=== PATIENT | female | born 1995 | race Caucasian/White ===

== ENCOUNTER 2024-07-02 22:55 | Inpatient (IN) | payer BC, SELFPAY ==
[2024-07-02] VITALS (8 sets, daily range): BP systolic 124–172; BP diastolic 85–104; BMI 37.5
[2024-07-02 18:09] LABS: Blood Urea Nitrogen 9 mg/dl (7-17); Carbon Dioxide 18 mmol/L (22-30); Chloride 108 mmol/L (98-107); Glucose 106 mg/dl (70-99); Lipase 222 U/L (23-300); Sodium 139 mmol/L (135-145); eGFR > 60.00
[2024-07-02 18:28] LABS: Calcium 15.3 mg/dl (8.4-10.2)
[2024-07-02 20:57] LABS: % Basophils 0.6 % (0-2); % Eosinophils 1.2 % (0-6); % Immature Granulocytes 0.4 % (0-0.5); % Lymphocytes 20.8 % (20.5-51.1); % Monocytes 3.7 % (1.7-9.3); % Neutrophils 73.3 % (42.2-75.2); Absolute Basophils 0.1 10^3/uL (0-0.2); Absolute Eosinophils 0.2 10^3/uL (0-0.7); Absolute Immature Granulocytes 0.1 10^3/uL (0-0.05); Absolute Lymphocytes 3.6 10^3/uL (1.2-3.4); Absolute Monocytes 0.6 10^3/uL (0.1-0.6); Absolute Neutrophils 12.6 10^3/uL (1.4-6.5); Hematocrit 43.5 % (37.0-47.0); Hemoglobin 14.5 g/dL (12.0-16.0); Mean Corp Hgb Conc. 33.3 g/dL (33.0-37.0); Mean Corpuscular Hgb 28.5 pg (27.0-31.0); Mean Corpuscular Volume 85.5 fL (81.0-99.0); Mean Platelet Volume 10.3 fL (7.4-10.4); Nucleated Red Blood Cells % 0 %; Platelet Count 387 10^3/uL (130-400); Red Blood Cell Count 5.09 10^6/uL (4.20-5.40); White Blood Cell Count 17.2 10^3/uL (4.8-10.8)
[2024-07-02] MEDS: NSS 1000 IV (21:00)
[2024-07-02 21:09] LABS: HCG, Serum Qualitative Screen Negative
[2024-07-02 21:11] LABS: Magnesium 2.1 mg/dl (1.6-2.3); Phosphorus 2.3 mg/dl (2.5-4.5)
[2024-07-02 21:12] LABS: Ionized Calcium 1.98 mMOL/L (1.15-1.33)
[2024-07-02 21:25] LABS: Calcium 14.8 mg/dl (8.4-10.2)
[2024-07-02] MEDS: AREDIA 270 MG IV (21:35)
[2024-07-02 21:43] LABS: TSH Reflex To Free T4 3.44 uIU/ml (0.47-4.68)
--- NOTE | 2024-07-02 21:58 | ED.GENMED ---
History of Present Illness
General
Chief Complaint: Abdominal Symptoms
Source: patient
Exam Limitations: none
Time Seen by Provider: 07/02/24 20:00
History of Present Illness
History of Present Illness:
Patient with postprandial right upper quadrant abdominal pain intermittently for over a year.
Past History
Past History
ED Past Medical History: Asthma
ED Past Surgical History: Other ([place] teeth)
Social History
Tobacco: Smoker
Alcohol: Occasional
Drug: None
Personal:
Living: with family
Review of Systems
Review of Systems
All Other Systems: Not applicable
Constitutional: Denies fever
Respiratory: Reports no symptoms
Cardiac: Reports no symptoms
Phy Exam
Physical Exam
Physical Exam:
GENERAL: Alert and oriented in no apparent distress
EYE: Orbits normal.
NECK: Supple, no significant adenopathy.
ENT: Pharynx without erythema
CARDIAC: Regular rate and rhythm without any obvious murmurs.
LUNGS: Clear breath sounds,normal
ABDOMEN: Soft, mild right upper quadrant tenderness. No rebound or guarding no mass or hernia
NEUROLOGICAL: Alert and oriented , grossly non-focal
SKIN: Warm and dry, no rash or lesion, no discoloration, skin intact.
MUSCULOSKELETAL: No edema,no deformity.Good color
PSYCH: Normal and appropriate interaction.
Course
Orders/Labs/Results
Orders:
Orders
07/02/24 17:37
Test Result ONCE
07/02/24 17:45
Basic Metabolic Panel Urgent
Lipase Urgent
07/02/24 20:08
US Abdomen Complete/Upper Urgent
Comment:
Reason For Exam: Right upper quadrant pain
07/02/24 20:13
Add On- LAB Urgent
Tests Added?: pth,ionized calcium, tsh reflex t4
0.9% Sodium Chloride 1000 ml [Nss] 1,000 ml IV BOLUS
07/02/24 20:14
EKG [Electrocardiogram (*1)] Urgent
Reason for Study: Other
Other Reason for Exam: hypercalcemia
EKG- Treatment ONCE
07/02/24 20:15
Add On- LAB Urgent
Tests Added?: magnesium,phosphorous
07/02/24 20:47
Complete Blood Count/With Diff Urgent
HCG, Serum Qualitative Screen Routine
Magnesium Routine
Comment: ADD ON
PTH [Intact PTH Includes Calcium] Urgent
Phosphorus Routine
Comment: ADD ON
TSH Reflex To Free T4 Routine
Comment: ADD ON
07/02/24 21:00
Pamidronate Disodium [Aredia] 60 mg 0.9% Sodium Chloride 250 ml [Nss] 250 ml IV ONCE
07/02/24 21:02
Ionized Calcium Urgent
07/02/24 22:16
CefTRIAXone [Rocephin] 1,000 mg IV NOW STA
MetroNIDAZOLE 500 MG/100 ML [Flagyl 500 mg] 100 ml IV NOW
07/02/24 22:29
Admit/Transfer Patient As Directed
Co-Sign Provider:
Level of Care: Inpatient admission
Assign to:: Telemetry
Physician / Group: Vick
Diagnosis: Hypercalcemia; Biliary Colic
Reason for Telemetry: Arrhythmia
Date to Stop Telemetry: 07/05/24
Time to Stop Telemetry: 11:00
Reason for Hospitalization: IVFs, IV abx
Expected length of stay greater than two midnights?: Yes
ELOS- Estimated Length of Stay in days: 3
I certify the patient meets the requirements for IP care: Yes
PRN Pain Medication Management As Directed
May give lesser potent ordered pain med per pt: Yes
preference::
Protocol:: Medication orders for pain may be administered in a
manner that supports deferring to patient preference
when the pt is:
- Requesting an ordered lesser potent pain medication.
Least to most potent pain medications are defined
as: acetaminophen < NSAID < tramadol < opioids
(morphine, oxycodone, hydromorphone).
- Requesting a lesser dose of the same medication IF
ORDERED.
- Requesting a less intrusive route of administration
if both routes are prescribed by the provider (PO <
IV).
07/02/24 22:30
Code Status As Directed
Resuscitation Status: Full Code
07/02/24 22:36
Acetaminophen [Tylenol] 1,000 mg PO NOW STA
07/03/24 00:03
0.9% Sodium Chloride 1000 ml [Nss] 1,000 ml IV 150 mls/hr
Acetaminophen [Tylenol] 650 mg PO Q4HPRN PRN
CefTRIAXone [Rocephin] 1,000 mg IV Q24H
HYDROmorphone [Dilaudid] 0.25 mg IV Q3HPRN PRN
MetroNIDAZOLE 500 MG/100 ML [Flagyl 500 mg] 100 ml IV Q8H
07/03/24 00:03
Consult Notification Routine
Specialty to Notify: Nephrology
Consult Notification Routine
Specialty to Notify: Surgical
NEPHROLOGY CONSULT Routine
Consulting Provider: Wiliam Barrett
Was physician already notified: No
Reason for consult: Hypercalcemia
SURGICAL CONSULT Routine
Consulting Provider: Nilay Lal
Was physician already notified: No
Reason for consult: Cholelithiasis
Activity As Directed
Activity Level: Out of Bed-Early Mobility
With Assistance
I&O [Intake/ Output] As Directed
Frequency: q12h
Vital Signs As Directed
Frequency: Per unit guidelines
Smoking Cessation Counseling [RESP] Routine
DX Deep Vein Thrombosis Video Routine
07/03/24 Breakfast
Clear Liquid
Vitamin D 1,25 Dihydroxy [S] IN AM
Vitamin D, 25-OH IN AM
07/03/24 08:00
Nicotine [Nicoderm Transdermal] 14 mg TRANSDERM DAILY
07/03/24 18:00
Enoxaparin Sodium [Lovenox] 40 mg SC QPM
07/05/24 11:00
DC Protocol for Telemetry ONCE
Abnormal Lab Results
07/02/24 07/02/24 07/02/24
17:45 20:47 21:02
WBC 17.2 H 10^3/uL
(4.8-10.8)
Abs Immat Gran (auto) 0.1 H 10^3/uL
(0-0.05)
Absolute Neuts (auto) 12.6 H 10^3/uL
(1.4-6.5)
Absolute Lymphs (auto) 3.6 H 10^3/uL
(1.2-3.4)
Chloride 108 H mmol/L
(98-107)
Carbon Dioxide 18 L mmol/L
(22-30)
Glucose 106 H mg/dl
(70-99)
Calcium 15.3 H* mg/dl 14.8 H* mg/dl
(8.4-10.2) (8.4-10.2)
Ionized Calcium 1.98 H* mMOL/L
(1.15-1.33)
Phosphorus 2.3 L mg/dl
(2.5-4.5)
07/02/24 20:47
07/02/24 17:45
Vital Signs
Initial and Last Documented VS:
Initial Vital Signs
Temp Pulse Resp BP Pulse Ox
98.6 F 108 16 172/100 100
07/02/24 17:34 07/02/24 17:34 07/02/24 17:34 07/02/24 17:34 07/02/24 17:34
Last Documented Vital Signs
Temp Pulse Resp BP Pulse Ox
98.6 F 108 16 148/87 97
07/02/24 17:34 07/02/24 17:34 07/02/24 17:34 07/02/24 23:55 07/02/24 23:56
*Radiology
Radiology exam reviewed: radiology read reviewed (Gallstones)
*Pulse Oximetry
Patient hypoxic: no
*EKG
Interpreted by ED Provider?: Yes
Interpretation: abnormal
Comparison EKG: changes noted
Heart Rate: 85
Rate: normal
Rhythm: sinus
Meherrin: normal axis
Interval: normal interval
QRS Pattern: right bundle branch block (inc)
Ischemia: non-specific ST changes
*Critical Care Note
Total Time (30-74mins, 75-104mins- exclusive of procedures): Not Applicable
Update Note
Update Note:
Patient with acute cholecystitis. Antibiotics ordered. Has a hive issue with penicillin at a 4-year-old. Reviewed recommendations. Feel Rocephin and Flagyl will be reasonable. As for the hypercalcemia, discussed with nephrology.
ED Attending Note
-
Portions of this chart may have been created with voice recognition software.� Occasional wrong word or��sound alike� substitutions may have occurred due to the inherent limitations of voice recognition software.
Discharge Plan
Departure
Patient Disposition: Admit
Date of Disposition: 07/02/24
Time of Disposition: 21:57
Presentation/result/management discussed w/ accepting MD/DO: Hospitalist
Discharge Problem:
Cholecystitis, Hypercalcemia
Interventions
Interventions:
*Risk Screen - Suicide Last Done: 07/02/24 17:34
*General Assessment Last Done: 07/02/24 17:34
*Neglect/Abuse Screening Last Done: 07/02/24 17:34
ED- Fall Risk Assessment Last Done: 07/02/24 20:54
*ED COVID-19 Vaccine History Last Done: 07/02/24 17:34
*Nursing Disposition Last Done: 07/02/24 22:55
ME-Jkyvjs-Zslahhemeo Assessment Last Done: 07/02/24 20:54
Discharge Date and Time
Discharge Date/Time: 07/03/24 00:07
--- NOTE | 2024-07-02 22:05 | HPS.HSE ---
Family Physician
-
Family Physician: * NONE
Chief Complaint
-
Abdominal Pain
History of Present Illness
Patient is a 29-year-old female who presents with right upper quadrant abdominal pain. Patient reports a few days ago she developed right upper quadrant abdominal discomfort. Today pain got significantly worse and she now describes as a sharp
stabbing pain. Over the last few weeks she has noted increased nausea with some vomiting. She denies fever, sweats or chills. She reports pain is similar to an episode she had several years ago at which time she was told she had gallstones and
needed to have her gallbladder removed. Workup in the emergency department revealed significant. Patient denies any prior history of elevated calcium levels that she is aware of. She denies any muscle weakness, muscle twitching or muscle cramps.
Medical History
Past Medical History
Past Medical History: Reports Other
Additional Past Medical History:
Polycystic Ovarian Syndrome
Past Surgical History: Reports Other
Additional Past Surgical History:
[place] Teeth
Left salpingectomy
Social History
Tobacco: Smoker (1 PPD)
Alcohol: None
Drug: Marijuana (Occasional)
Family History
Family History: Not pertinent
Allergies / Home Medications
Allergies reflects when Allergies were last updated in [facility].
Home Medications with original date entered in [facility]
Allergy/Medication List:
Allergies
Allergy/AdvReac Type Severity Reaction Status Date / Time
egg Allergy GI Issues Verified 01/10/22 22:56
Penicillins Allergy Hives Verified 01/10/22 22:56
Home Medications
acetaminophen 325 mg tablet 650 mg (2 x 325 mg) PO Q4HPRN PRN mild pain 01/18/18
ondansetron 4 mg disintegrating tablet 4 mg PO Q8HPRN PRN nausea 07/02/24
Review of Systems
-
A 12 point ROS was completed and negative except as noted: Yes
Constitutional: Denies Fever or Chills
Respiratory: Denies Cough or Trouble Breathing
Cardiac: Denies Chest Pain or Palpitations
Abdomen/GI: Reports See HPI
Physical Exam
Vital Signs
Vital Signs
Temp Pulse Resp BP Pulse Ox
98.6 F 108 16 172/100 100
07/02/24 17:34 07/02/24 17:34 07/02/24 17:34 07/02/24 17:34 07/02/24 17:34
Physical Exam
General: Comfortable and Conversant
HEENT: Anicteric and Moist mucous membranes
Respiratory: Clear and Non Labored Respirations
GI: Soft and Non Tender
Rectal: Deferred by Provider
Musculoskeletal: No Clubbing, No Cyanosis and No Edema
Skin: Warm and Dry
Neuro: Awake, Alert, Oriented and Nonfocal/grossly intact
Psych: Calm
Laboratory Results
-
07/02/24 20:47
07/02/24 17:45
Laboratory Results
Total Bilirubin Cancelled 07/02/24 17:45
AST Cancelled 07/02/24 17:45
ALT Cancelled 07/02/24 17:45
Alkaline Phosphatase Cancelled 07/02/24 17:45
Lipase 222 U/L (23-300) 07/02/24 17:45
Data Reviewed
-
Ultrasound: Report Reviewed by me
Lab Data: Labs Reviewed by me
Impression/Plan
-
Acute/Severe Hypercalcemia, highly suspicious of primary hyperparathyroidism
-ED discussed with Nephrology and patient given pamidronate in ED
-Continue IVFs
-Check Intact PTH, and Vitamin D Level
Biliary Colic
-Ultrasound with evidence of cholelithiasis but no mention of gallbladder wall thickening or pericholecystic fluid
-Despite US finding patient has significant leukocytosis - Continue empiric ceftriaxone and metronidazole for possible acute cholecystitis
-Consult General Surgery
Tobacco Use Disorder
-Continue nicotine patch
-Encourage smoking cessation
DVT proph: Lovenox
Code Status: Full Code
[2024-07-02] MEDS: ROCEPHIN 1000 MG IV (22:33)
[2024-07-02] MEDS: FLAGYL 500 MG 100 IV (22:42)
--- NOTE | 2024-07-02 22:42 | W.PN.UPDATE ---
Update Note
Progress Note Update
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 I agree with the findings and history and physical and concur with assessment and plan.
Briefly this is a 29-year-old female with past medical history of biliary colic with did not follow-up with surgery afterwards, had a prior fallopian tubes resection but otherwise has been healthy presenting to the emergency department with
intermittent colicky right upper quadrant pain that started a few days ago but then developed into a sharp stabbing pain in the right upper quadrant today. She has ongoing nausea. She is unable to tolerate p.o. She denies any fevers or chills.
She denies any changes to the color of her urine.
In the emergency department patient was found to be normotensive slightly tachycardic and afebrile. She had a leukocytosis of 17,000 hemoglobin platelet count are normal. Electrolytes were mostly unremarkable. Additional divalence including
calcium showed elevated calcium to 14.8 with elevated ionized calcium, phosphorus level was low at 2.3.
A review of her prior labs showed that she the calcium may have been trending up since 2019 but possibly disease most likely new. Patient denies any history of kidney stones. She denies any history of hematuria.
Abdominal ultrasound shows cholelithiasis, no sonographic evidence for abnormal gallbladder distention or biliary obstruction. Mild hepatomegaly with diffuse liver.
A&P
Recurrent biliary colic complicated by leukocytosis.
- admit to med/surg
- npo
- pain control and antiemetics
- IV ceftriaxone/flagy
- surgyer consult
Hypercalcemia - Elevated calcium/ionized calcium. Low Phos. Given age and findings likely primary hyperparathyroid. Does not appear symptomatic.
- lower calcium measures - NS at 150 ml/hr
- pamidronate
- check intact pth, vitamin d and 1-25 vitamin d
- no need to correct phos at this time
DVT PPX - lovenox sq
Code status - full code
[2024-07-02] MEDS: TYLENOL 1000 MG PO (22:48)
[2024-07-03] VITALS (7 sets, daily range): BP systolic 116–162; BP diastolic 63–100; BMI 37.2
[2024-07-03] MEDS: NSS 1000 IV ×4 (00:48→23:44)
[2024-07-03] MEDS: MELATONIN 5 MG PO (01:26)
--- NOTE | 2024-07-03 02:07 | TRANSFER ---
Pt transported up at 00:00 from ED via stretcher diagnosis of hypercalcemia and biliary colic. On tele monitor. Pt reported RUQ discomfort/tender to palpation but denies pain. Pt ambulatory. VSS. Able to make needs known. Bed on lowest position;
call osorio within reach. Assessment as documented.
[2024-07-03 07:39] LABS: Vitamin D, 25-OH*** 19.8 ng/mL (30-80)
[2024-07-03] MEDS: NICODERM TRANSDERMAL 14 MG TRANSDERM (08:12)
[2024-07-03] MEDS: FLAGYL 500 MG 100 IV ×3 (08:12→23:44)
--- NOTE | 2024-07-03 09:32 | CON.GS ---
Medical History
-
Chief Complaint: RUQ abdominal pain
History of Present Illness:
Patient is a 29 yo F with a PMH of obesity, PCOS, symptomatic cholelithiasis, s/p unilateral salpingectomy, new diagnosis of hypercalcemia who presented to the ED with approximately a week of worsening RUQ abdominal pressure. Ms. Lozada states that
she has had intermittent attacks of RUQ abdominal discomfort. Her previous attack was approximately 3 to 4 years ago. Symptoms improved and resolved with dietary changes. She does note clear onset of symptoms with oral intake, particularly with
dairy products. Pain radiates to the back and occasionally to the RIGHT shoulder. Her most recent attack began several days ago and has persisted prompting presentation to the ED. No fevers or chills. Associated nausea and vomiting. She reports
pale stools, but denies any tea colored urine or jaundice.
Of note, labs on admission were notable for severe hypercalcemia to 15. Further workup including vitamin D and PTH levels are pending. She reports fatigue but denies any other symptoms such as bone pain, psychosis, nephrolithiasis, more
generalized abdominal discomfort or pain.
Past Medical History
Past Medical History: Other (Newly diagnosed hypercalcemia (workup pending), PCOS, obesity)
Past Surgical History: Gynecological (Unilateral salpingectomy)
Social History
Tobacco: Smoker
Alcohol: Occasional
Drug: None
Family History
Family History: Reviewed & Noncontributory
Allergies / Home Medications
Allergy/AdvReac Type Severity Reaction Status Date / Time
egg Allergy GI Issues Verified 01/10/22 22:56
Penicillins Allergy Hives Verified 01/10/22 22:56
�Medication �Instructions �Recorded �Confirmed �Type
acetaminophen 325 mg tablet 650 mg (2 x 325 mg) PO Q4HPRN PRN 01/18/18 07/02/24 Rx
mild pain
ondansetron 4 mg disintegrating 4 mg PO Q8HPRN PRN nausea 07/02/24 07/02/24 History
tablet
Review of Systems
-
A 10 point review of systems was completed, and was negative except as per HPI.
Physical Exam
Vital Signs
Temp Pulse Resp BP Pulse Ox
97.8 F 77 16 131/86 95
07/03/24 07:38 07/03/24 07:38 07/03/24 07:38 07/03/24 07:38 07/03/24 08:00
07/02/24 07/03/24 07/04/24
06:59 06:59 06:59
Actual Weight 101.264 kg
Body Mass Index (BMI) 37.2
Lab Results
07/02/24 20:47
07/02/24 17:45
WBC 17.2 10^3/uL (4.8-10.8) H 07/02/24 20:47
Hgb 14.5 g/dL (12.0-16.0) 07/02/24 20:47
Hct 43.5 % (37.0-47.0) 07/02/24 20:47
Plt Count 387 10^3/uL (130-400) 07/02/24 20:47
Abs Immat Gran (auto) 0.1 10^3/uL (0-0.05) H 07/02/24 20:47
Neutrophils % 73.3 % (42.2-75.2) 07/02/24 20:47
Physical Exam
General: Well Developed, Well Nourished and No Apparent Distress
HEENT: Normocephalic and Anicteric
Respiratory: Non Labored Respirations
Cardiac: Regular Rhythm
GI: Soft, Non Distended, Tender (RUQ, positive Lester sign), Obese and Other (Nonperitoneal)
Musculoskeletal: No Edema
Skin: Warm and Dry
Neuro: Nonfocal/Grossly Intact
Data Reviewed
-
Ultrasound: Image Personally Visualized and interpreted and Report Reviewed by me
Labs: Labs Reviewed by me
Assessment / Plan
-
Patient is a 29 yo F p/w crescendo biliary colic versus acute cholecystitis. Incidental finding of hypercalcemia with workup ongoing.
The natural history and pathophysiology of milligrams stone disease was reviewed. Workup thus far including labs and imaging were reviewed. Completion workup with LFTs and bilirubin pending especially in light of history with pale stools. Options
for management including medical management with low-fat diet versus surgical management with cholecystectomy were considered and discussed. Given her persistent discomfort and pain would recommend cholecystectomy. Timing of cholecystectomy
somewhat complicated by newly diagnosed hypercalcemia. Workup ongoing. Discussion with hospitalist, will proceed with cholecystectomy when cleared from their standpoint. All questions answered.
-- Laparoscopic cholecystectomy, timing TBD based on management of newly diagnosed hypercalcemia and completion workup with LFTs
-- Clears, NPO PM
-- Antibiotics: Ceftriaxone and Flagyl
-- Pain control: Tylenol and IV Dilaudid as needed
--- NOTE | 2024-07-03 09:39 | PTCARENOTE ---
Pt requests if family members are in the room to please ask them to leave the room before discussing anything medical related.
--- NOTE | 2024-07-03 10:32 | CM ---
Met with pt at bedside
Pt reports she lives with her parents and 6 yo daughter in a 2 story home; 3 steps to enter, 12 steps to 2nd fl. + 1/2 bath on FF
Independent, employed FT, drives
DME - none
SNF/HH - no past hx
Has ride at discharge
PCP - [facility]
Pharm - [facility] [place]
Plan - anticipate home no needs when medically ready
[2024-07-03 11:42] LABS: Troponin I < 0.012 ng/ml
[2024-07-03 12:44] LABS: ALT (SGPT) 31 U/L (0-35); AST (SGOT) 29 U/L (14-36); Albumin 3.8 g/dl (3.5-5.0); Alkaline Phosphatase 76 U/L (38-126); Direct Bilirubin 0.2 mg/dl (0.0-0.4); Total Bilirubin 0.4 mg/dl (0.2-1.3); Total Protein 6.3 g/dl (6.3-8.2)
--- NOTE | 2024-07-03 13:11 | W.CON.NEPH ---
Consultation
-
Date/Time Consultation Requested: 07/03/2024 9am
Date/Time Consultation Performed: 07/03/2024 1 PM
Requesting Provider: Dr. Lara
Performing Provider: Dr. Barrett
Reason for Consultation: Hypercalcemia
Medical History
-
Chief Complaint: Abdominal pain
History of Present Illness:
This is a 29-year-old female who has polycystic ovarian syndrome currently on no medications. She had previously been on metformin though she had only suffered side effects from the drug and ultimately stopped it. There is a question as to whether
or not she had any thyroid issues previously seen endocrinology and has not been followed up in the recent past. She came to the emergency room because of right upper quadrant pain with a few days prior to admission. The pain worsened into a
stabbing nature with nausea and vomiting. He was felt that she has cholecystitis and cholecystectomy was advised. However blood work had shown calcium level greater than 15 for which we are asked to assist with management of. She denies any other
symptoms but does note that she has had more difficulty with concentration and work lately .
Past Medical History
Polycystic ovarian syndrome
Cholecystitis
Recent teeth extraction
Left salpingectomy for ovarian torsion
Social History
Tobacco: Smoker (1 pack/day)
Alcohol: Occasional
Family History
Family History: Adopted
Allergies / Home Medications
Allergy/AdvReac Type Severity Reaction Status Date / Time
egg Allergy GI Issues Verified 01/10/22 22:56
Penicillins Allergy Hives Verified 01/10/22 22:56
�Medication �Instructions �Recorded �Confirmed �Type
acetaminophen 325 mg tablet 650 mg (2 x 325 mg) PO Q4HPRN PRN 01/18/18 07/02/24 Rx
mild pain
ondansetron 4 mg disintegrating 4 mg PO Q8HPRN PRN nausea 07/02/24 07/02/24 History
tablet
Review of Systems
-
Abdominal pain now pressure only
All other systems: Negative unless noted
Physical Exam
Vital Signs
Vital Signs
Temp Pulse Resp BP Pulse Ox
97.8 F 87 16 143/92 97
07/03/24 11:15 07/03/24 11:15 07/03/24 11:15 07/03/24 11:15 07/03/24 11:15
Lab Results
WBC 17.2 10^3/uL (4.8-10.8) H 07/02/24 20:47
RBC 5.09 10^6/uL (4.20-5.40) 07/02/24 20:47
Hgb 14.5 g/dL (12.0-16.0) 07/02/24 20:47
Hct 43.5 % (37.0-47.0) 07/02/24 20:47
Plt Count 387 10^3/uL (130-400) 07/02/24 20:47
Sodium 139 mmol/L (135-145) 07/02/24 17:45
Potassium mmol/L (3.5-5.1) 07/02/24 17:45
Chloride 108 mmol/L (98-107) H 07/02/24 17:45
Carbon Dioxide 18 mmol/L (22-30) L 07/02/24 17:45
BUN 9 mg/dl (7-17) 07/02/24 17:45
Creatinine 0.6 mg/dL (0.6-1.0) 07/02/24 17:45
eGFR > 60.00 07/02/24 17:45
Glucose 106 mg/dl (70-99) H 07/02/24 17:45
Calcium 14.8 mg/dl (8.4-10.2) H* 07/02/24 20:47
Phosphorus 2.3 mg/dl (2.5-4.5) L 07/02/24 20:47
Albumin 3.8 g/dl (3.5-5.0) 07/03/24 04:44
Laboratory Tests
07/02/24 07/03/24
20:47 04:44
Vitamin D 25-Hydroxy 19.8 L
TSH (Reflex) 3.44
PTH Intact 611.0 H
Abdominal ultrasound July 02, 2024
IMPRESSION:
1. CHOLELITHIASIS.
2. No sonographic evidence for abnormal gallbladder distention or biliary obstruction.
3. Mild hepatomegaly and mild diffuse liver disease.
Physical Exam
Patient is awake alert oriented and in no distress. Mood and affect were pleasant, insight and judgment were good. Pupils are equal round and reactive to light, extraocular movements are intact, sclera were anicteric. Hearing was normal, ears and
nose are intact. Oropharynx was clear. Neck was supple with trachea midline and no thyromegaly. Heart was regular rate and rhythm without rubs. Lower extremities without edema. Lungs were clear to auscultation bilaterally and with normal
excursion. Abdomen was soft, nontender, with normal active bowel sounds, and no hepatosplenomegaly. Skin was without rash and with normal turgor.
Data Reviewed
-
Ultrasound: Report Reviewed by me
Medical Tests (Nuc Med, Echo etc): Image Personally Visualized and interpreted (EKG on 07/03/2024 by reading shows normal sinus rhythm, incomplete right bundle branch block)
Labs: Labs Reviewed by me
Old Records: Reviewed
Assessment/Plan
-
Assessment
Cholecystitis
PCOS
Hypercalcemia
Primary hyperparathyroidism (calcium 10.6 in 05/2019)
Plan
Status post pamidronate in the emergency room
Normal saline 150 cc/h
Follow BMP
Elevated PTH at 611 in this clinical scenario indicates primary hyperparathyroidism. She will require parathyroid scan as an outpatient and referral to surgeon (Dr. Franco @ [facility]).
Surgery on hold until calcium improves further. Would prefer to see calcium closer to 12.0 for surgery.
[2024-07-03] MEDS: DILAUDID 0.25 MG IV ×3 (13:25→23:48)
--- NOTE | 2024-07-03 13:27 | W.PN.HOSP.TC ---
Today's Communication/Plan
-
CW IV fluids
Follow Ca in am
CW ABX
Assessment / Plan
Assessment / Plan
Acute biliary Colic-recurrent
-Ultrasound with evidence of cholelithiasis but no mention of gallbladder wall thickening or pericholecystic fluid
-Despite US finding patient has significant leukocytosis and right upper quadrant pain and tenderness- Continue empiric ceftriaxone and metronidazole for possible acute cholecystitis
-Consulted General Surgery-plan for lap Hedy TBD
Acute/Severe Hypercalcemia secondary to primary hyperparathyroidism
-PTH at 611 indicates primary hyperparathyroidism
-ED discussed with Nephrology and patient given pamidronate in ED
-Continue IVFs
-Check Intact PTH
- Vitamin 25 OH D Level low
-Improving calcium. Continue to follow.
-EKG on admission shows QTc within the normal but ST segment elevation noted. Patient without chest pain. Repeat KG today shows QTc within normal limits and resolution of ST segment.
-Continue to follow calcium and onces in mild range less than 12 ,can plan to go ahead with the surgery.
- Need thyroid scan as OP and surgery referral.
Tobacco Use Disorder
-Continue nicotine patch
-Encourage smoking cessation
DVT proph: Lovenox
Code Status: Full Code
DW surgery
Total time spent on today's encounter was 52 minutes which included time spent in counseling the patient/family regarding diagnosis and treatment plan as listed above, goals of care, and symptom management. Case was discussed with nursing staff,
specialists, and care coordinators/case management. All labs and imaging personally reviewed by me. Remainder the time spent in detailed review of previous records, lab data, imaging, and other medical provider documentation.
Anticipated Discharge: > 48 hours
Subjective/Interval History
-
Date of Service: July 03, 2024
Patient with improved abdominal pain. No nausea this morning.
Objective Data
-
Labs:
Laboratory Results
07/03/24
04:44
Total Bilirubin 0.4
AST 29
ALT 31
Alkaline Phosphatase 76
Vital Signs:
Vital Signs
Temp Pulse Resp BP Pulse Ox
97.8 F 87 16 143/92 97
07/03/24 11:15 07/03/24 11:15 07/03/24 11:15 07/03/24 11:15 07/03/24 11:15
I&O
07/02/24 07/03/24 07/04/24
06:59 06:59 06:59
Intake Total 1000 / 1000
Balance 1000 / 1000
Review of Systems
-
Constitutional: Denies Fever
EENT: Denies Sore Throat
Respiratory: Denies Cough or Trouble Breathing
Cardiac: Denies Chest Pain
Neuro: Denies Dizzy
Physical Exam
-
General: No Apparent Distress
HEENT: Moist Mucous Membranes
Respiratory: Clear to Auscultation and Non Labored Respirations; Negative Accessory Resp Muscle Use
Cardiac: Regular Rhythm and S1/S2
GI: Soft, Nondistended, Normal Bowel Sounds and Tender (Right upper quadrant)
Neuro: AO x 3
Data Reviewed
-
Labs: Labs Reviewed by me
[2024-07-03] MEDS: ZOFRAN 4 MG IV ×2 (13:57→19:49)
[2024-07-03] MEDS: TYLENOL 650 MG PO ×2 (15:57→19:50)
[2024-07-03] MEDS: LOVENOX 40 MG SC (17:21)
--- NOTE | 2024-07-03 20:00 | PTCARENOTE ---
Resumed care of pt laying in bed AAOx3. Pt with oral temp 100.6. Pt complaining of headache and feeling nauseous. DE reports right upper quadrant abd pain 4/10 at this time. PRN Tylenol and Zofran administered as ordered. IVF infusing via right AC
int as ordered. Will continue to monitor.
[2024-07-03] MEDS: ROCEPHIN 1000 MG IV (21:03)
[2024-07-03] MEDS: STERILE WATER FOR INJECTION 10 ML IV (21:04)
[2024-07-04] VITALS (13 sets, daily range): BP systolic 103–129; BP diastolic 59–87
--- NOTE | 2024-07-04 02:17 | DOWNTIME ---
There was a [employer] [address] Client Statistical Clerk Downtime on 07/04/2024 from 0100 to 07/04/2023 at 0205 . Downtime documentation of patient's care, including medication administrations, has been reconciled in the electronic record per guidelines. Refer to the
patient's paper chart under the miscellaneous tab to see printed paper medication records and downtime forms.
[2024-07-04] MEDS: ZOFRAN 4 MG IV ×3 (03:05→20:24)
[2024-07-04] MEDS: TYLENOL 650 MG PO ×2 (03:05→09:39)
--- NOTE | 2024-07-04 06:16 | PTCARENOTE ---
Pt with intermittent pain and nausea t/o the night. PRN medications administered as ordered. Pt ambulating to bathroom and voiding without difficulty. IVF infusing as ordered. Will continue to monitor.
[2024-07-04] MEDS: NSS 1000 IV ×2 (07:42→20:13)
[2024-07-04] MEDS: FLAGYL 500 MG 100 IV ×3 (07:42→23:54)
[2024-07-04] MEDS: NICODERM TRANSDERMAL TRANSDERM (07:54)
[2024-07-04 08:38] LABS: Hematocrit 37.4 % (37.0-47.0); Hemoglobin 12.4 g/dL (12.0-16.0); Mean Corp Hgb Conc. 33.2 g/dL (33.0-37.0); Mean Corpuscular Volume 87.6 fL (81.0-99.0); Mean Platelet Volume 11.1 fL (7.4-10.4); Platelet Count 247 10^3/uL (130-400); Red Blood Cell Count 4.27 10^6/uL (4.20-5.40); Red Cell Dist. Width 13.3 % (11.5-14.5); White Blood Cell Count 6.2 10^3/uL (4.8-10.8)
[2024-07-04 08:41] LABS: Blood Urea Nitrogen 4 mg/dl (7-17); Calcium 11.9 mg/dl (8.4-10.2); Carbon Dioxide 19 mmol/L (22-30); Chloride 112 mmol/L (98-107); Estimated Creatinine Clearance > 125 ml/min; Glucose 88 mg/dl (70-99); Potassium 3.1 mmol/L (3.5-5.1); Sodium 140 mmol/L (135-145); eGFR > 60.00
[2024-07-04] MEDS: DILAUDID 0.25 MG IV (09:14)
[2024-07-04] MEDS: KCL 270 MEQ IV (11:11)
--- NOTE | 2024-07-04 11:43 | W.PN.GS2 ---
Today's Communication / Plan
-
-- Laparoscopic cholecystectomy with IOC
Assessment / Plan
-
Patient is a 29 yo F p/w severe biliary colic versus acute cholecystitis in the setting of recently diagnosed hyperparathyroidism
Low-grade fevers overnight, vital signs stable
WBC normalized, LFTs and bilirubin normal
Calcium correction down below 12
Given her persistent abdominal discomfort recommend and plan for a cholecystectomy. In-depth discussion with the patient, Hospitalist, and Anesthesia regarding general anesthesia and her newly diagnosed hyperparathyroidism and hypercalcemia.
Initial EKG changes have resolved. Currently no cardiovascular symptomatology. Calcium has been corrected below 12. Cleared by hospitalist, nephrology, and anesthesia for proceeding with cholecystectomy.
Plan for a laparoscopic cholecystectomy with possible cholangiogram. The procedure itself, as well as the risks, benefits, and alternatives was discussed. Specifically, we discussed the risks of bleeding, infection, injury to surrounding
structures (bowel, bile ducts), CBD injury, need for open procedure. Typical postprocedure recovery was discussed. All questions answered. Consent signed.
-- Laparoscopic cholecystectomy with IOC
-- NPO, IVF
-- Abx: Ceftriaxone and Flagyl
-- Hypercalcemia management and fluids per Hospitalist/Nephrology
Subjective Data
-
Date of Service: July 04, 2024
Abdominal pain slightly improved, but persistent. Low-grade fevers overnight. No nausea or vomiting. No chest pain or shortness of breath.
Objective Data
-
Intake and Output
07/03/24 07/04/24 07/05/24
06:59 06:59 06:59
Intake Total 1000 / 1000 5500 / 5500
Balance 1000 / 1000 5500 / 5500
Intake:
Oral fluids 1900 / 1900
IV fluids (Total) 1000 / 1000 3300 / 3300
IV piggybacks 300 / 300
Other:
Number of approximated SMALL 1
amounts of urine
Number of approximated MODERATE 2 2
amounts of urine
How many times incontinent 1
SATURATED amount urine
Vital Signs
Temp Pulse Resp BP Pulse Ox
98.4 F 84 16 122/70 96
07/04/24 11:00 07/04/24 11:00 07/04/24 11:00 07/04/24 11:00 07/04/24 11:00
Lab Results
07/04/24 06:16
07/04/24 06:16
Calcium 11.9 mg/dl (8.4-10.2) H D 07/04/24 06:16
Phosphorus 2.3 mg/dl (2.5-4.5) L 07/02/24 20:47
Magnesium 2.1 mg/dl (1.6-2.3) 07/02/24 20:47
Total Bilirubin 0.4 mg/dl (0.2-1.3) 07/03/24 04:44
Direct Bilirubin 0.2 mg/dl (0.0-0.4) 07/03/24 04:44
AST 29 U/L (14-36) 07/03/24 04:44
ALT 31 U/L (0-35) 07/03/24 04:44
Alkaline Phosphatase 76 U/L (38-126) 07/03/24 04:44
Total Protein 6.3 g/dl (6.3-8.2) 07/03/24 04:44
Albumin 3.8 g/dl (3.5-5.0) 07/03/24 04:44
Physical Exam
-
Gen: NAD
Abd: soft, mild tenderness in RUQ, ND/obese, non-peritoneal
Patient has a banegas catheter: No
Patient has a central line: No
--- NOTE | 2024-07-04 11:47 | W.SUR.PREOP ---
Pre-Operative Surgical Note
-
I have examined this patient prior to the performance of the scheduled procedure.
The patient's condition is unchanged from the time of the current History and
Physical and the patient is able to undergo the scheduled procedure.
--- NOTE | 2024-07-04 11:49 | W.PN.HOSP.TC ---
Today's Communication/Plan
-
OR today
CW abx
Replete K
Assessment / Plan
Assessment / Plan
Acute biliary Colic-recurrent
-Ultrasound with evidence of cholelithiasis but no mention of gallbladder wall thickening or pericholecystic fluid
-Despite US finding patient has significant leukocytosis and right upper quadrant pain and tenderness- Continue empiric ceftriaxone and metronidazole for possible acute cholecystitis
-Consulted General Surgery-plan for lap Hedy today
Acute/Severe Hypercalcemia secondary to primary hyperparathyroidism
-PTH at 611 indicates primary hyperparathyroidism
-patient given pamidronate in ED
-Continue IVFs while NPO
- Vitamin 25 OH D Level low. Will start on Vit D on DC.
-Improving calcium- now <12
-EKG on admission shows QTc within the normal but ST segment elevation noted. Patient without chest pain. Repeat KG today shows QTc within normal limits and resolution of ST segment. Trops neg.
- Ok from Ca standpoint to go ahead with surgery.
- Need thyroid scan as OP and surgery referral.
Hypokalemia - repelte
Tobacco Use Disorder
-Continue nicotine patch
-Encourage smoking cessation
DVT proph: Lovenox
Code Status: Full Code
DW surgery about medical clearance
DW RN
Total time spent on today's encounter was 52 minutes which included time spent in counseling the patient/family regarding diagnosis and treatment plan as listed above, goals of care, and symptom management. Case was discussed with nursing staff,
specialists, and care coordinators/case management. All labs and imaging personally reviewed by me. Remainder the time spent in detailed review of previous records, lab data, imaging, and other medical provider documentation.
Anticipated Discharge: 24 - 48 hours
Subjective/Interval History
-
Date of Service: July 04, 2024
Patient still has right upper quadrant abdominal pain but no nausea.
No new symptoms.
No fever chills
Objective Data
-
Labs:
Laboratory Results
07/04/24
06:16
WBC 6.2
Hgb 12.4
Hct 37.4
Plt Count 247 D
Sodium 140
Potassium 3.1 L
Chloride 112 H
Carbon Dioxide 19 L
BUN 4 L
Creatinine 0.7
Glucose 88
Calcium 11.9 H D
Vital Signs:
Vital Signs
Temp Pulse Resp BP Pulse Ox
98.4 F 84 16 122/70 96
07/04/24 11:00 07/04/24 11:00 07/04/24 11:00 07/04/24 11:00 07/04/24 11:00
I&O
07/03/24 07/04/24 07/05/24
06:59 06:59 06:59
Intake Total 1000 / 1000 5500 / 5500
Balance 1000 / 1000 5500 / 5500
Review of Systems
-
Respiratory: Denies Trouble Breathing
Cardiac: Denies Chest Pain
Neuro: Denies Dizzy
Physical Exam
-
General: Comfortable
Respiratory: Non Labored Respirations; Negative Accessory Resp Muscle Use
Cardiac: Regular Rhythm and S1/S2; Negative Tachycardic
GI: Soft, Nondistended, Normal Bowel Sounds and Tender (RUQ)
Neuro: AO x 3
Data Reviewed
-
Labs: Labs Reviewed by me
--- NOTE | 2024-07-04 14:04 | CM ---
Chart reviewed
Pt for laparoscopic cholecystectomy with IOC today
CM will follow for discharge needs
Plan - anticipate home no needs
--- NOTE | 2024-07-04 15:45 | W.IMMPOSTOP ---
Surgical Immed Post Op Note
-
Primary Surgeon: Lukasz
Assisting Surgeon: LESLYE Harris
Pre-op Diagnosis: Acute cholecystitis
Post-op Diagnosis: Acute cholecystitis
Procedure Performed: Laparoscopic cholecystectomy with IOC
Anesthesia Type: General
Specimen / Cultures:
1. Gallbladder
Estimated Blood Loss: 3 cc
Complications: None
Operative Findings:
1. Omental and fatty adhesions, mild wall thickening
2. Critical view of safety
3. IOC with no filling defects and anatomy confirmed
[2024-07-04] MEDS: DILAUDID 0.5 MG IV (16:13)
[2024-07-04] MEDS: LOVENOX 40 MG SC (17:02)
--- NOTE | 2024-07-04 17:06 | W.PN.NEPH.PH ---
Today's Communication / Plan
-
continue normal saline
Assessment/Plan
-
Assessment
Cholecystitis
PCOS
Hypercalcemia
Primary hyperparathyroidism (calcium 10.6 in 05/2019)
Plan
Status post pamidronate in the emergency room
Normal saline 150 cc/h
Follow BMP
Elevated PTH at 611 in this clinical scenario indicates primary hyperparathyroidism. She will require parathyroid scan as an outpatient and referral to surgeon (Dr. Franco @ [facility]).
Status post cholecystectomy 07/04.
Calcium improving.
Consider sensipar while parathyroid scan and further evaluation pending
-
-
Date of Service: July 04, 2024
CC / HPI / ROS
-
Chief Complaint:
hypercalcemia
History of Present Illness:
hypercalcemia secondary to primary hyperparathyroidism. Status post laparoscopic cholecystectomy.
Review of Systems:
No chest pain shortness of breath.
Labs
-
Labs:
WBC 6.2 10^3/uL (4.8-10.8) 07/04/24 06:16
RBC 4.27 10^6/uL (4.20-5.40) 07/04/24 06:16
Hgb 12.4 g/dL (12.0-16.0) 07/04/24 06:16
Hct 37.4 % (37.0-47.0) 07/04/24 06:16
Plt Count 247 10^3/uL (130-400) D 07/04/24 06:16
Sodium 140 mmol/L (135-145) 07/04/24 06:16
Potassium 3.1 mmol/L (3.5-5.1) L 07/04/24 06:16
Chloride 112 mmol/L (98-107) H 07/04/24 06:16
Carbon Dioxide 19 mmol/L (22-30) L 07/04/24 06:16
BUN 4 mg/dl (7-17) L 07/04/24 06:16
Creatinine 0.7 mg/dL (0.6-1.0) 07/04/24 06:16
eGFR > 60.00 07/04/24 06:16
Glucose 88 mg/dl (70-99) 07/04/24 06:16
Calcium 11.9 mg/dl (8.4-10.2) H D 07/04/24 06:16
Phosphorus 2.3 mg/dl (2.5-4.5) L 07/02/24 20:47
Albumin 3.8 g/dl (3.5-5.0) 07/03/24 04:44
Physical Exam
-
Vital Signs:
Vital Signs
Temp Pulse Resp BP Pulse Ox
97.6 F 90 16 122/81 94
07/04/24 17:00 07/04/24 17:00 07/04/24 17:00 07/04/24 17:00 07/04/24 17:00
Respiratory:: Bilateral: CTA
Lung Excursion:: Normal
Abdomen:: Tender
Extremity Edema:: None: Bilateral:
Ga Catheter: No
--- NOTE | 2024-07-04 18:02 | PTCARENOTE ---
Received patient from PACU via bed around 1645 in stable condition. 5 lap sites to abdomen with surgical glue intact. Patient denies pain. 1 episode of vomiting after walking to the bathroom. Patient denies nausea now. Call osorio in reach.
[2024-07-04] MEDS: NSS IV (20:13)
[2024-07-04] MEDS: TORADOL 10 MG IV (20:26)
[2024-07-04] MEDS: ROXICODONE 5 MG PO (21:35)
[2024-07-04] MEDS: ROCEPHIN 1000 MG IV (21:36)
[2024-07-04] MEDS: STERILE WATER FOR INJECTION 10 ML IV (21:36)
[2024-07-04 23:52] LABS: Vitamin D 1,25 Dihydroxy 60.7 pg/mL (19.9-79.3)
[2024-07-05] MEDS: ROXICODONE 5 MG PO ×2 (02:40→09:05)
[2024-07-05 03:00] VITALS: BP 115/71
[2024-07-05 06:14] LABS: Hematocrit 33.3 % (37.0-47.0); Hemoglobin 11.1 g/dL (12.0-16.0); Mean Corp Hgb Conc. 33.3 g/dL (33.0-37.0); Mean Corpuscular Hgb 29.4 pg (27.0-31.0); Mean Corpuscular Volume 88.3 fL (81.0-99.0); Mean Platelet Volume 11.2 fL (7.4-10.4); Platelet Count 234 10^3/uL (130-400); Red Blood Cell Count 3.77 10^6/uL (4.20-5.40); Red Cell Dist. Width 13.6 % (11.5-14.5); White Blood Cell Count 7.8 10^3/uL (4.8-10.8)
[2024-07-05 06:50] VITALS: BP 114/66
[2024-07-05 07:04] LABS: ALT (SGPT) 50 U/L (0-35); AST (SGOT) 36 U/L (14-36); Albumin 3.3 g/dl (3.5-5.0); Alkaline Phosphatase 72 U/L (38-126); Blood Urea Nitrogen 5 mg/dl (7-17); Calcium 10.3 mg/dl (8.4-10.2); Carbon Dioxide 18 mmol/L (22-30); Chloride 114 mmol/L (98-107); Estimated Creatinine Clearance > 125 ml/min; Glucose 101 mg/dl (70-99); Potassium 3.6 mmol/L (3.5-5.1); Sodium 141 mmol/L (135-145); Total Bilirubin 0.1 mg/dl (0.2-1.3); Total Protein 5.7 g/dl (6.3-8.2); eGFR > 60.00
--- NOTE | 2024-07-05 08:04 | W.PN.GS2 ---
Today's Communication / Plan
-
-- DC instructions updated
-- F/u in 2-4 weeks
-- Please call with any questions or concerns
Assessment / Plan
-
Patient is a 29 yo F p/w severe biliary colic versus acute cholecystitis in the setting of recently diagnosed hyperparathyroidism
POD#1 s/p laparoscopic cholecystectomy with IOC
AVSS
WBC remains normal, mild ALT elevation from operative manipulation, bilirubin normal
Calcium correction down to 10.3
Recovering well. No concerns and okay for discharge from a surgical standpoint.
-- Low fat diet
-- Pain control: Tylenol, Toradol, Oxycodone
-- IVF per Nephrology and Hapotalist
-- Abx: None further needed from surgical standpoint
-- DC instructions updated
-- F/u in 2-4 weeks
-- Please call with any questions or concerns
Subjective Data
-
Date of Service: July 05, 2024
Reports epigastric incisional soreness, well-controlled. Preoperative symptoms have significantly improved/resolved. Tolerating a diet, no nausea or vomiting. No reports of increased abdominal cramping, bloating, or diarrhea. No fevers.
Objective Data
-
Intake and Output
07/04/24 07/05/24 07/06/24
06:59 06:59 06:59
Intake Total 5500 / 5500 6600 / 6600
Output Total 200 / 200
Balance 5500 / 5500 6400 / 6400
Intake:
Oral fluids 1900 / 1900 3840 / 3840
IV fluids (Total) 3300 / 3300 2310 / 2310
normosol 50 / 50
IV piggybacks 300 / 300 450 / 450
Output:
Urine, Voided 200 / 200
Other:
Number of approximated SMALL 1
amounts of urine
Number of approximated MODERATE 2
amounts of urine
How many times incontinent 4
MODERATE amount urine
How many times incontinent 1
SATURATED amount urine
Vital Signs
Temp Pulse Resp BP Pulse Ox
97.9 F 73 16 114/66 98
07/05/24 06:50 07/05/24 06:50 07/05/24 06:50 07/05/24 06:50 07/05/24 06:50
Lab Results
07/05/24 04:40
07/05/24 04:40
Calcium 10.3 mg/dl (8.4-10.2) H 07/05/24 04:40
Phosphorus 2.3 mg/dl (2.5-4.5) L 07/02/24 20:47
Magnesium 2.1 mg/dl (1.6-2.3) 07/02/24 20:47
Total Bilirubin 0.1 mg/dl (0.2-1.3) L 07/05/24 04:40
Direct Bilirubin 0.2 mg/dl (0.0-0.4) 07/03/24 04:44
AST 36 U/L (14-36) 07/05/24 04:40
ALT 50 U/L (0-35) H 07/05/24 04:40
Alkaline Phosphatase 72 U/L (38-126) 07/05/24 04:40
Total Protein 5.7 g/dl (6.3-8.2) L 07/05/24 04:40
Albumin 3.3 g/dl (3.5-5.0) L 07/05/24 04:40
Physical Exam
-
Gen: NAD
Abd: soft, appropriately tender, ND/obese, non-peritoneal, incisions c/d/i - no erythema, ecchymosis or drainage
Patient has a banegas catheter: No
Patient has a central line: No
[2024-07-05] MEDS: FLAGYL 500 MG 100 IV (09:02)
[2024-07-05] MEDS: NICODERM TRANSDERMAL TRANSDERM (09:06)
--- NOTE | 2024-07-05 09:31 | W.PN.NEPH.PH ---
Today's Communication / Plan
-
Continue with IV fluids calcium improved to 10.3
Assessment/Plan
-
Assessment
Cholecystitis
PCOS
Hypercalcemia
Primary hyperparathyroidism (calcium 10.6 in 05/2019)
Plan
Status post pamidronate in the emergency room
Follow BMP
Elevated PTH at 611 in this clinical scenario indicates primary hyperparathyroidism. She will require parathyroid scan as an outpatient and referral to surgeon (Dr. rFanco @ [facility]).
Status post cholecystectomy 07/04.
Calcium improving.
Consider sensipar while parathyroid scan and further evaluation pending. Will need endocrinology outpatient
-
-
Date of Service: July 05, 2024
CC / HPI / ROS
-
Chief Complaint:
hypercalcemia
History of Present Illness:
hypercalcemia secondary to primary hyperparathyroidism. Status post laparoscopic cholecystectomy.
Review of Systems:
No chest pain shortness of breath.
Labs
-
Labs:
WBC 7.8 10^3/uL (4.8-10.8) 07/05/24 04:40
RBC 3.77 10^6/uL (4.20-5.40) L 07/05/24 04:40
Hgb 11.1 g/dL (12.0-16.0) L 07/05/24 04:40
Hct 33.3 % (37.0-47.0) L 07/05/24 04:40
Plt Count 234 10^3/uL (130-400) 07/05/24 04:40
Sodium 141 mmol/L (135-145) 07/05/24 04:40
Potassium 3.6 mmol/L (3.5-5.1) 07/05/24 04:40
Chloride 114 mmol/L (98-107) H 07/05/24 04:40
Carbon Dioxide 18 mmol/L (22-30) L 07/05/24 04:40
BUN 5 mg/dl (7-17) L 07/05/24 04:40
Creatinine 0.6 mg/dL (0.6-1.0) 07/05/24 04:40
eGFR > 60.00 07/05/24 04:40
Glucose 101 mg/dl (70-99) H 07/05/24 04:40
Calcium 10.3 mg/dl (8.4-10.2) H 07/05/24 04:40
Phosphorus 2.3 mg/dl (2.5-4.5) L 07/02/24 20:47
Albumin 3.3 g/dl (3.5-5.0) L 07/05/24 04:40
Physical Exam
-
Vital Signs:
Vital Signs
Temp Pulse Resp BP Pulse Ox
97.9 F 73 16 114/66 98
07/05/24 06:50 07/05/24 06:50 07/05/24 06:50 07/05/24 06:50 07/05/24 06:50
Respiratory:: Bilateral: CTA
Lung Excursion:: Normal
Abdomen:: Tender
Extremity Edema:: None: Bilateral:
Ga Catheter: No
--- NOTE | 2024-07-05 09:40 | W.PN.UPDATE ---
Update Note
Progress Note Update
Appears patient is cleared for discharge from a surgical standpoint so we will need to temporize the primary hyperparathyroidism as she likely will not get a follow-up in a timely fashion with recurrence of hypercalcemia.
I prescribed Sensipar 30 mg daily she continue that outpatient repeat lab.
--- NOTE | 2024-07-05 09:47 | W.PN.HOSP.TC ---
Addendum entered and electronically signed by Matias Gupta MD 07/05/24 10:16:
[facility] health social work professor Endo Dr Zarco - will see her in office. Proscribing sensipar at this time.
Original Note:
Today's Communication/Plan
-
DC
Assessment / Plan
Assessment / Plan
Acute biliary Colic-recurrent
-Ultrasound with evidence of cholelithiasis but no mention of gallbladder wall thickening or pericholecystic fluid
-Despite US finding patient has significant leukocytosis and right upper quadrant pain and tenderness- Continue empiric ceftriaxone and metronidazole for possible acute cholecystitis
-s/p lap Hedy 07/04 without immediate complications. Tolerating diet and cleared by surgery for discharge. Mild wall thinkening of GB but no significant inflammation or necrosis noted .Hold further antibiotics.
Acute/Severe Hypercalcemia secondary to primary hyperparathyroidism
-PTH at 611 indicates primary hyperparathyroidism
-patient given pamidronate in ED
-Improved calcium to 10.3.
- Vitamin 25 OH D Level low but with uncorrected hyprcalcemia situation will hold on supplementation for now.
-EKG on admission shows QTc within the normal but ST segment elevation noted. Patient without chest pain. Repeat KG today shows QTc within normal limits and resolution of ST segment. Trops neg.
- Need thyroid scan as OP and surgery referral.
- Referred he to endocrinology for evaluation first.
- Sensipar prescribed by nephro while waiting definitive tx for hyperparathyroidism.
Tobacco Use Disorder
-Continue nicotine patch
-Encourage smoking cessation
DVT proph: Lovenox
Code Status: Full Code
Medically stable for DC
Surgery cleared for DC
More than 30 minutes spent in discharge including
Final examination of the patient
Summarizing hospital stay
Instructions for continuing care to all relevant caregivers
Preparation of discharge records, prescriptions, and referral forms
Total time spent (in minutes): 32
Anticipated Discharge: Today
Subjective/Interval History
-
Date of Service: July 05, 2024
Status post lap cholecystectomy and she is tolerating diet. No fever or chills.
Objective Data
-
Labs:
Laboratory Results
07/05/24
04:40
WBC 7.8
Hgb 11.1 L
Hct 33.3 L
Plt Count 234
Sodium 141
Potassium 3.6
Chloride 114 H
Carbon Dioxide 18 L
BUN 5 L
Creatinine 0.6
Glucose 101 H
Calcium 10.3 H
Total Bilirubin 0.1 L
AST 36
ALT 50 H
Alkaline Phosphatase 72
Vital Signs:
Vital Signs
Temp Pulse Resp BP Pulse Ox
97.9 F 73 16 114/66 98
07/05/24 06:50 07/05/24 06:50 07/05/24 06:50 07/05/24 06:50 07/05/24 06:50
I&O
07/04/24 07/05/24 07/06/24
06:59 06:59 06:59
Intake Total 5500 / 5500 6600 / 6600
Output Total 200 / 200
Balance 5500 / 5500 6400 / 6400
Review of Systems
-
Constitutional: Denies Fever
Respiratory: Denies Trouble Breathing
Cardiac: Denies Chest Pain
Abdomen/GI: Reports Abdominal Pain (from surgical sites); Denies Nausea or Vomiting
Neuro: Denies Dizzy
Physical Exam
-
General: Comfortable
HEENT: Moist Mucous Membranes
Respiratory: Clear to Auscultation and Non Labored Respirations; Negative Accessory Resp Muscle Use
Cardiac: Regular Rhythm and S1/S2; Negative Tachycardic
GI: Nondistended, Normal Bowel Sounds and Tender (expected tenderness over surgical areas)
Neuro: AO x 3
Data Reviewed
-
Labs: Labs Reviewed by me
--- NOTE | 2024-07-05 09:54 | CM ---
Chart reviewed and met with pt
Pt poss d/c today
Has ride home - father
Plan - anticipate home no needs
[2024-07-05] MEDS: SENSIPAR 30 MG PO (10:12)
[2024-07-05 11:17] VITALS: BP 127/74
[2024-07-05 11:23] VITALS: BP 127/74
== END 2024-07-05 12:41 | disposition home or self-care (01) | DRG 988 ==
LOC: 2 SOUTH 22:55
PROVIDERS: Emergency Medicine; Physician Assistant Medical; ADMITTING PHYSICIAN Internal Medicine; ATTENDING PHYSICIAN Internal Medicine; CONSULT PHYSICIAN Specialist; CONSULT PHYSICIAN Surgery; EMERGENCY PHYSICIAN Emergency Medicine
PROC: BF111ZZ Fluoroscopy of Biliary and Pancreatic Ducts using Low Osmolar Contrast (ICD-10-PCS; 2024-07-04)
PROC: 0FT44ZZ Resection of Gallbladder, Percutaneous Endoscopic Approach (ICD-10-PCS; 2024-07-04)
DX: E21.0 Primary hyperparathyroidism (principal); K80.00 Calculus of gallbladder with acute cholecystitis without obstruction; E28.2 Polycystic ovarian syndrome; F17.210 Nicotine dependence, cigarettes, uncomplicated; Z88.0 Allergy status to penicillin; E66.9 Obesity, unspecified; Z68.37 Body mass index [BMI] 37.0-37.9, adult; K76.0 Fatty (change of) liver, not elsewhere classified; I45.10 Unspecified right bundle-branch block; E55.9 Vitamin D deficiency, unspecified; J45.909 Unspecified asthma, uncomplicated; K66.0 Peritoneal adhesions (postprocedural) (postinfection)
CPT/HCPCS: 88304; 74300; 76000; 76700; 80048; 80053; 80076; 82306; 82330; 82652; 83690; 83735; 83970; 84100; 84443; 84484; 84703; 85025; 85027; 87070; 93005; 96365; 96366; 99285; J2430

== ENCOUNTER → 2024-07-24 08:37 | Outpatient (REF) | payer BC, SELFPAY | LOC: RAD 08:37 | PROVIDERS: ATTENDING PHYSICIAN Surgery; FAMILY PHYSICIAN Family Medicine | DX: E21.0 Primary hyperparathyroidism (principal) | CPT/HCPCS: 78071; A9500 ==

== ENCOUNTER 2024-07-31 06:07 | Day surgery (SDC) | payer BC, SELFPAY ==
[2024-07-27 07:11] VITALS: BMI 34.4
[2024-07-27 08:12] LABS: Hematocrit 44.4 % (37.0-47.0); Hemoglobin 14.7 g/dL (12.0-16.0); Mean Corp Hgb Conc. 33.1 g/dL (33.0-37.0); Mean Corpuscular Hgb 28.8 pg (27.0-31.0); Mean Corpuscular Volume 87.1 fL (81.0-99.0); Mean Platelet Volume 10.4 fL (7.4-10.4); Platelet Count 363 10^3/uL (130-400); Red Cell Dist. Width 13.5 % (11.5-14.5); White Blood Cell Count 8.8 10^3/uL (4.8-10.8)
[2024-07-27 08:14] LABS: ALT (SGPT) 44 U/L (0-35); AST (SGOT) 25 U/L (14-36); Albumin 4.9 g/dl (3.5-5.0); Alkaline Phosphatase 84 U/L (38-126); Blood Urea Nitrogen 8 mg/dl (7-17); Calcium 11.8 mg/dl (8.4-10.2); Carbon Dioxide 24 mmol/L (22-30); Chloride 107 mmol/L (98-107); Estimated Creatinine Clearance > 125 ml/min; Glucose 81 mg/dl (70-99); Sodium 143 mmol/L (135-145); Total Bilirubin 0.6 mg/dl (0.2-1.3); Total Protein 7.6 g/dl (6.3-8.2); eGFR > 60.00
[2024-07-27 08:19] LABS: INR 0.93; PT 12.7 Sec (11.4-14.6)
[2024-07-27 08:20] LABS: APTT 30.2 Sec (23.4-35.0)
[2024-07-31] VITALS (8 sets, daily range): BP systolic 102–122; BP diastolic 60–75; BMI 34.4
[2024-07-31] MEDS: NORMOSOL-R/PLASMALYTE-A 1000 IV (08:46)
[2024-07-31] MEDS: NEURONTIN 300 MG PO (08:47)
[2024-07-31] MEDS: HEPARIN 5000 UNITS SC (08:47)
[2024-07-31] MEDS: TYLENOL 1000 MG PO (08:47)
[2024-07-31 10:59] LABS: Turbo PTH 525.6 pg/ml (13.6-85.8)
--- NOTE | 2024-07-31 12:03 | OR.RPT ---
Operative Report
Operative Report
Date of Operation: July 31, 2024
Preoperative Diagnosis: �Parathyroid hyperparathyroidism - E210
Postoperative Diagnosis: Same
Surgeon: Pancho Teran M.D.
Operation: Minimally Invasive Left Inferior Parathyroidectomy - 93341
Anesthesia: GET
Estimated Blood Loss: 3 cc
Drains: None
Specimen: Left Inferior neck nodule, rule out parathyroid adenoma
Complications: �None
Procedure:
The patient was taken to the operating room and placed in the usual supine position. After adequate general endotracheal anesthesia was established, the patient's neck was extended, prepped, and draped in the typical sterile fashion. A 4 cm
transcervical incision was made two fingerbreadths above the sternal notch. The skin incision was made with the #15 blade, and this was taken through the skin into the subcutaneous tissue. The underlying platysma muscle was divided, and subplatysmal
flaps were created superiorly to the thyroid cartilage and inferiorly to the sternal notch. Strap muscles were identified and at the midline.
The attention was turned to the left side of the neck. The left thyroid lobe was mobilized medially. During this process, the left recurrent laryngeal nerve was identified and preserved throughout the surgery. The left lower neck nodule was
identified and noted to be enlarged, excised, and sent to the pathology department, which showed a hypercellular parathyroid gland. The normal-appearing left upper parathyroid gland was identified and preserved. The intraoperative PTH levels
normalized.
After obtaining adequate hemostasis, the strap muscles were reapproximated with #3-0 Vicryl in a running fashion. The platysma muscle was reapproximated with #3-0 Vicryl in an interrupted fashion, and the skin was approximated with #4-0 Monocryl in
a running subcuticular fashion. The Steri-Strips and sterile dressings were placed. The patient tolerated the procedure well. The final instrument, needle, and sponge counts were correct. The patient was extubated and transferred to the PACU.
[2024-07-31 12:24] LABS: Turbo PTH 25.7 pg/ml (13.6-85.8)
--- NOTE | 2024-07-31 12:40 | W.IMMPOSTOP ---
Surgical Immed Post Op Note
-
Primary Surgeon:
Assisting Surgeon:
Pre-op Diagnosis:
Post-op Diagnosis:
Procedure Performed:
Anesthesia Type:
Specimen / Cultures:
Estimated Blood Loss:
Complications:
Operative Findings:
[2024-07-31] MEDS: SUBLIMAZE 50 MCG IV ×2 (12:52→13:05)
== END 2024-07-31 14:10 | disposition home or self-care (01) ==
LOC: SDS 06:07
PROVIDERS: ATTENDING PHYSICIAN Surgery; FAMILY PHYSICIAN Family Medicine
DX: D35.1 Benign neoplasm of parathyroid gland (principal); E21.0 Primary hyperparathyroidism
CPT/HCPCS: 60500; 88305; 88332; 36415; 80053; 83970; 85027; 85610; 85730; 88331; 93005